=== PATIENT | female | born 1995 | race Caucasian/White ===

== ENCOUNTER 2016-03-29 09:04 | Emergency (ER) | payer OTHER ==
[~2016-03-29] VITALS: Wt 111.5 kg
[2016-03-29 09:43] LABS: ADD UMIC YES; URINE BILIRUBIN (Dip) 1+ (NEGATIVE); URINE BLOOD (Dip) 3+ (NEGATIVE); URINE COLOR YELLOW (YELLOW); URINE GLUCOSE (Dip) NEGATIVE (NEGATIVE); URINE KETONES (Dip) 40 (NEGATIVE); URINE LEUKOCYTE ESTERASE (Dip) 1+ (NEGATIVE); URINE NITRITE (Dip) NEGATIVE (NEGATIVE); URINE TOTAL PROTEIN (Dip) TRACE (NEGATIVE); URINE UROBILINOGEN (Dip) 0.2 E.U./dL (0.1-1.0)
[2016-03-29 09:45] LABS: BASOPHILS % 0.6 % (0.0-2.0); EOSINOPHILS # 0.1 10^3/ul (0.0-0.5); EOSINOPHILS % 0.9 % (0.0-7.0); HEMATOCRIT 40.1 % (37.0-47.0); HEMOGLOBIN 13.5 g/dl (12.0-16.0); LYMPHOCYTES # 1.8 10^3/ul (0.8-2.9); LYMPHOCYTES % 24.3 % (15.0-51.0); MEAN CORPUSCULAR HEMOGLOBIN 29.4 pg (29.0-33.0); MEAN CORPUSCULAR HGB CONC 33.7 g/dl (32.0-37.0); MEAN CORPUSCULAR VOLUME 87.1 fl (82.0-101.0); MEAN PLATELET VOLUME 8.4 fl (7.4-10.4); MONOCYTE # 0.6 10^3/ul (0.3-0.9); MONOCYTES % 8.2 % (0.0-11.0); PLATELET COUNT 215 10^3/UL (140-440); RED CELL DISTRIBUTION WIDTH 12.4 % (11.5-14.5); UNCORRECTED WBC 7.6 10^3/ul (4.8-10.8); WHITE BLOOD COUNT 7.6 10^3/ul (4.8-10.8)
[2016-03-29 09:52] LABS: CONDITION 1
--- NOTE | 2016-03-29 10:23 | RADRPT ---
PROCEDURE: US Pelvis. CLINICAL INDICATION: Vaginal spotting. TECHNIQUE: Multiple sonographic images of the pelvis were obtained utilizing a transabdominal and endovaginal technique. The images were reviewed on a PACS workstation. COMPARISON: None available. FINDINGS: The uterus is visualized and measures 7.7 x 4.1 x 5.1 cm. The endometrial echo complex is mildly pro minent and measures 2.1 mm. There is no evidence of an intrauterine gestational sac. There is free f luid in the cul-de-sac.. The right ovary has a normal echotexture and measures 4.2 x 3.2 x 2.9 cm. T here is a 1.9 x 2.3 x 1.4 cm right ovarian cyst. The left ovary has a normal echotexture and measure s 3.3 x 1.8 x 2.6 cm. No adnexal masses are noted. IMPRESSION: 1. Essentially unremarkable ultrasound of the pelvis. No evidence of an intrauterine gestation. 2. 1.9 x 2.3 x 1.4 cm right ovarian cyst. Note: In the proper clinical setting, an early IUP, missed AB or ectopic could have this appearance . Correlate with serial quantitative beta HCGs and possible follow-up ultrasound. RPTAT: AACC Physician Alec Date Time Electronically viewed and signed by Physician Alec on 03/29/2016 10:22 /
[2016-03-29 10:50] LABS: SQUAMOUS EPITHELIAL CELL,UR FEW
[2016-03-29 10:57] LABS: ICTOTEST NEGATIVE (NEGATIVE)
[2016-03-29] MEDS ORDERED: ONDA4TAB8 PO (11:14)
[2016-03-29] MEDS ORDERED: NITR-58 PO (11:18)
--- NOTE | 2016-03-29 17:36 | ERD ---
DATE OF SERVICE: HISTORY OF PRESENT ILLNESS: The patient is a 20-year-old female coming in complaining of vomiting. The patient states that she had a positive test at home. She is unsure if her vomiting i s associated with her . She is having no lateralizing pain. She is having some mild cookie ess in the abdominal region. She states she does not know when her last menstrual period was. She has been taking Depo-Provera for the last year. Her last shot was November 2015. She currently do es not have an COMPUTER OPERATIONS SUPERVISOR following her . G1, P0, A0. PAST MEDICAL HISTORY: Denies medical problems. ALLERGIES TO MEDICATIONS: DENIES. PAST SURGICAL HISTORY: Denies. SOCIAL HISTORY: Denies. REVIEW OF SYSTEMS: A 12-point review of systems was done. Refer to HPI for positives, all other sy stems negative. PHYSICAL EXAMINATION VITAL SIGNS: Temperature is 97.7, pulse 104, blood pressure is 128/88, respiratory 18, O2 saturatio n 100% on room air. Pain intensity of 4/10. GENERAL: The patient is well-appearing, well-nourished, no acute distress. HEART: Regular rate and rhythm. No murmurs, clicks, rubs, or gallops. No S3 or S4. CHEST: Clear to auscultation bilaterally. There are no rales, wheezes, or rhonchi. HEENT: Atraumatic. Conjunctivae are pink. Pupils equal, round, and reactive to light. There is n o scleral icterus. Tympanic membranes clear bilaterally. Oropharynx clear. No nystagmus or photop hobia. ABDOMEN: Soft, nontender and nondistended. Good bowel sounds. No rebound or guarding. No gross p eritonitis. No gross organomegaly or masses. No Guevara sign or McBurney point tenderness. SKIN: There is no apparent rash or petechiae. The skin is warm and dry. EMERGENCY ROOM COURSE: The patient had blood work done in the ER. CBC was within normal limits. B eta quant was 437.4. The patient's urine showed 1+ leukocytes with 5 to 10 white blood cells, and 3 + hemoglobin. The patient's blood type A positive. Obstetric ultrasound showed: 1. Essentially unremarkable ultrasound of pelvis. No evidence an IUP. 2. A 1.9 x 2.3 x 1.4 cm right ovarian cyst in the proper clinical setting. An early IUP, missed AB, or ectopic could have this appearance. Correlate with serial quantitative beta HCGs and possible followup ultrasound. Given the patient does not have IUP seen on ultrasound with positive hCG and no vaginal bleeding, I did consult Dr. Rodriguez who is the laborist orientation and mobility instructor. I explained the case. Dr. Rodriguez did not come down and see patient. She stated the patient was s table for outpatient management and to return in 2 days for reevaluation of beta quant and re-ultras ound. The patient was given Zofran in the ER. The patient did not have vomiting episodes in the ER . DIAGNOSES: 1. Positive hCG. 2. Urinary tract infection. MEDICAL DECISION MAKING: Ectopic cannot be ruled out; however, the patient's beta hCG lev els are very low, and she is currently not have any lateralized pelvic abdominal pain on exam. I espino ve a low suspicion for ectopic , but explained to patient the importance of returning in 2 days for recheck of beta quant levels and repeat of ultrasound to rule out possible ectopic. This c ase was discussed with laborist who stated to send patient home. I have low suspicion for dehydrati on. The patient tolerated p.o. in the ER and the patient is able to produce urine. I have low susp icion for pyelo. Vital signs are stable. The patient's exam is nonconcerning. The patient is not having vaginal bleeding. She is Rh positive. No indication for RhoGAM injection. The patient is n ontoxic appearing. The patient's hemoglobin is stable. DISCHARGE: The patient is discharged stable. The patient given a prescription for Zofran and Macro bid and told to return in 2 days for a recheck of beta quant and hCG. The patient was told if sympt oms change or worsen, to return sooner than 2 days. All other questions answered at time of dischar ge. Discharge summary given at the time of departure. The patient understood and complied with diana n. Dictated By: OLIVIA JEAN-BAPTISTE for [facility]/NTS Conf#: [id number] DID#: [id number]
== END 2016-03-29 11:40 | disposition home or self-care (01) ==
LOC: FTE 09:04
DX: O23.40 Unspecified infection of urinary tract in pregnancy, unspecified trimester (principal); Z32.01 Encounter for pregnancy test, result positive; Z3A.00 Weeks of gestation of pregnancy not specified
CPT/HCPCS: 36415; 76801; 76817; 81001; 84702; 85025; 86900; 86901; Z7502; 81003

== ENCOUNTER 2016-03-31 07:26 | Emergency (ER) | payer OTHER ==
[~2016-03-31] VITALS: Ht 172.7 cm; Wt 112.0 kg
[~2016-03-31 07:26] MED LIST: NITR-58 PO; ONDA4TAB8 PO
[2016-03-31 07:37] VITALS: Ht 172.7 cm; Wt 112.0 kg
--- NOTE | 2016-03-31 09:15 | RADRPT ---
PROCEDURE: US Pelvis. CLINICAL INDICATION: vaginal bleeding TECHNIQUE: Multiple sonographic images of the pelvis were obtained utilizing a transabdominal and endovaginal technique. The images were reviewed on a PACS workstation. COMPARISON: 03/29/2016 FINDINGS: The uterus is normal in size and demonstrates a normal appearance of the myometrium. The endometria l stripe is prominent in appearance and has the thickness of 21 mm. No intrauterine gestation is noted. The right ovary measures 4.2 x 3.3 x 1.6 cm. There is a 2.2 cm simple cyst in the right ovary. Ther e is normal Doppler flow. The left ovary was not visualized. There is a small amount of free fluid in the cul-de-sac. RPTAT: AA IMPRESSION: No intrauterine gestation visualized. Left ovary not visualized. No significant interval change. Differential diagnosis includes early , missed or ectopic . Follow-up ultrasound and HCG levels is recommended. .Santhosh Fulton MD, MD Date Time Electronically viewed and signed by .Santhosh Fulton MD, on 03/31/2016 09:15 .S/
--- NOTE | 2016-03-31 10:59 | ERD ---
DATE OF SERVICE: 03/31/2016 HISTORY OF PRESENT ILLNESS: The patient is a 20-year-old female coming in for a recheck of an ultra sound and beta quant level. Patient was seen 2 days ago, and was not seen on ultrasound. Patient did have positive beta quant levels. The patient was told to return. She is currently hav ing some mild bleeding. There is some generalized sore pelvic pain, but no lateralized severe tende rness on palpation of the abdomen. Patient has had no vomiting. She is not having clotting. No fe vers. She is unsure of her last menstrual period because she has been on the Depo-Provera shot. He r last Depo shot was 11/2015. G1, P0, A0. PAST MEDICAL HISTORY: Denies any other medical problems. ALLERGIES TO MEDICATIONS: DENIES ALLERGIES TO MEDICATIONS. SURGERIES: Denies. HOSPITALIZATIONS: Denies. SOCIAL HISTORY: Denies. REVIEW OF SYSTEMS: A 12-point review of systems was done. Refer to HPI for positives, all other sy stems negative. PHYSICAL EXAMINATION VITAL SIGNS: Temperature is 98.7, pulse is 103, blood pressure is 137/79, respiratory 18, O2 satura tion 100% on room air. Pain intensity is 0/10. GENERAL: The patient is well-appearing, well-nourished, no acute distress. HEART: Regular rate and rhythm. No murmurs, clicks, rubs or gallops. No S3 or S4. CHEST: Clear to auscultation bilaterally. There are no rales, wheezes or rhonchi. HEENT: Atraumatic. Conjunctivae are pink. Pupils equal, round, and reactive to light. There is no s cleral icterus. Tympanic membranes clear bilaterally. Oropharynx clear. No nystagmus or photophobia . ABDOMEN: Soft, nontender and nondistended. Good bowel sounds. No rebound or guarding. No gross brayden tonitis. No gross organomegaly or masses. No Guevara sign or McBurney point tenderness. SKIN: There is no apparent rash or petechia. The skin is warm and dry. BACK: No midline or flank tenderness. EMERGENCY ROOM COURSE: The patient had a repeat beta quant level in the ER. Patient's beta quant l evels had increased slightly, which increased from 437.4 to 581.3. Patient had a repeat obstetric u ltrasound which showed no intrauterine gestation visualized. Left ovary not visualized. No signifi cant interval change. The differential diagnoses includes early , missed , or ecto pic . Followup ultrasound and hCG levels are recommended. Patient's blood type is A posit rene. DIAGNOSES: 1. Positive hCG. 2. Vaginal bleeding, threatened . MEDICAL DECISION MAKING: I cannot rule out ectopic at this time; however, the patient's beta quant levels are under the 1500 discriminatory zone, so patient may have early IUP within the uterus that is not visualized with the ultrasound. The patient is not having lateralized pain noted on exam. I have low suspicion for ectopic at this time. The patient is recommended to return within another 2 days for continued follow at the ER or with primary doctor for close followup. Patient was told if symptoms change or worsen, to return sooner. I have low suspicion for a ruptured ectopic. Patient 's vital signs are stable. The patient is nontoxic appearing. Patient is at risk for possible misc arriage, given she is having vaginal bleeding. DISCHARGE: The patient is discharged stable. Patient is told to continue taking medications as pre viously prescribed for UTI. Patient is told to return to the ER or with the primary doctor within t he next 2 days for recheck. The patient was told if symptoms progress or worsen to return sooner. All other questions answered at time of discharge. Discharge summary given at the time of departure . Patient understood and complied with plan. Dictated By: OLIVIA BARLOW/LEONIDAS Conf#: [id number] DID#: [id number]
== END 2016-03-31 09:36 | disposition home or self-care (01) ==
LOC: FTE 07:26
DX: O20.0 Threatened abortion (principal); Z3A.00 Weeks of gestation of pregnancy not specified
CPT/HCPCS: 76801; 76817; 84702; Z7502

== ENCOUNTER 2016-04-16 07:47 | Day surgery (SDC) | payer OTHER ==
[~2016-04-16] VITALS: Ht 172.7 cm; Wt 110.5 kg
[2016-04-16] VITALS (16 sets, daily range): BP systolic 114–139; BP diastolic 50–70; PULSE 88–120; RESP 20–29; Ht 172.7 cm; Wt 110.5 kg
--- NOTE | 2016-04-16 08:26 | ERD ---
ER Documentation Chief Complaint Date/Time DATE: 04/16/16 TIME: 08:25 Chief Complaint CAME IN VIA INTAKE DUE TO VAGINAL BLEEDING, <20 WKS GESTATION HPI 21-year-old female who is A0, she states that she is approximately 4 weeks comes to the emergency room with vaginal bleeding for the last 3- 4 days. This patient states that she had an ultrasound done on 29 March and was told that she was very early, she does know that she has a right ovarian cyst from that visit. Over the last 3 days she has had light bleeding that began to get heavier with clots passing, she describes pelvic cramping as well. She has not had any fevers or chills or dizziness. ROS All systems reviewed and are negative except as per history of present illness. Medications Home Meds Active Scripts Nitrofurantoin Monohyd Macrocr* (Macrobid*) 100 Mg Capsr, 100 MG PO BID for 7 Days, CAP Prov:FRANK RODRIGUEZ PA-C 03/29/16 Ondansetron Hcl* (Zofran*) 4 Mg Tablet, 4 MG PO Q6H for NAUSEA AND/OR VOMITING, #30 TAB Prov:FRANK RODRIGUZE PA-C 03/29/16 Allergies Allergies: Coded Allergies: No Known Allergy (Unverified , 03/29/16) PMhx/Soc Hx Alcohol Use: No Hx Substance Use: No Hx Tobacco Use: No Physical Exam Vitals Vital Signs Date Time Temp Pulse Resp B/P Pulse Ox O2 Delivery O2 Flow Rate FiO2 04/16/16 08:05 98.4 94 18 137/80 97 Physical Exam General: Well-developed, well-nourished. The patient appears in no acute distress. HEENT: Head is normocephalic, atraumatic. No scleral icterus. Neck: Supple. Nontender. Lungs: Clear to auscultation. Normal air movement. Heart: Regular rate and rhythm. S1 and S2 are normal. No murmurs, gallops, or rubs. Abdomen: Soft, nontender, nondistended. Bowel sounds are normoactive. Extremities: No clubbing or cyanosis. Normal pulses. Moving extremities x 4. No weakness. Neurologic: Alert and oriented 3. No focal deficits. Skin: Normal turgor. No rash or lesions. Result Diagram: 04/16/16 0900 Results 24 hrs Laboratory Tests Test 04/16/16 09:00 04/16/16 09:47 Basophils # 0.010^3/ul Basophils % 0.2% Beta HCG, Quantitative 2031.0mIU/ml Eosinophils # 0.010^3/ul Eosinophils % 0.3% Hematocrit 38.8% Hemoglobin 13.1g/dl Lymphocytes # 1.410^3/ul Lymphocytes % 13.9% Mean Corpuscular Hemoglobin 29.5pg Mean Corpuscular Hemoglobin Concent 33.6g/dl Mean Corpuscular Volume 87.8fl Mean Platelet Volume 8.7fl Monocytes # 0.410^3/ul Monocytes % 4.3% Neutrophils # 8.010^3/ul Neutrophils % 81.3% Nucleated Red Blood Cells # 0.010^3/ul Nucleated Red Blood Cells % 0.0/100WBC Platelet Count 45446^3/UL Red Blood Count 4.4210^6/ul Red Cell Distribution Width 12.4% Urine Bilirubin NEGATIVE Urine Clarity SLIGHTLY CLOUDY Urine Color LT. YELLOW Urine Glucose NEGATIVE% Urine Hemoglobin 3+ Urine Ketones 15 Urine Leukocyte Esterase 2+ Urine Microscopic RBC >50/HPF Urine Microscopic WBC 5-10/HPF Urine Nitrite NEGATIVE Urine Specific Grimes 1.025 Urine Squamous Epithelial Cells FEW Urine Total Protein TRACE Urine Urobilinogen 0.2 E.U./dL Urine pH 5.5 White Blood Count 9.810^3/ul Activated Partial Thromboplast Time 29.6Sec INR International Normalized Ratio 0.91 Prothrombin Time 12.2Sec Prothrombin Time Ratio 1.0 Current Medications Medications (Trade) Dose Ordered Sig/Kwasi Route PRN Reason Start Time Stop Time Status Last Admin Dose Admin Acetaminophen 650 mg 650 mg ONCE ONCE PO 04/16/16 08:30 04/16/16 08:31 DC 04/16/16 09:04 Sodium Chloride (NS) 1,000 ml @ 1,000 mls/hr Q1H ONCE IV 04/16/16 09:30 04/16/16 10:29 DC PROCEDURE: OBSTETRICAL ULTRASOUND WITH ENDOVAGINAL IMAGES CLINICAL INDICATION: Vaginal Bleed (), pain TECHNIQUE: Multiple sonographic images of the pelvis were obtained utilizing a transabdominal and endovaginal technique. The images were reviewed on a PACS workstation. COMPARISON: Obstetrical ultrasound from 03/31/2016 FINDINGS: The uterus measures 8.1 x 4.2 x 5.0 cm. The endometrial echo complex measures 15 mm in thickness. There is no evidence of an intrauterine . The right ovary measures 3.3 x 2.5 x 2.6 cm. The left ovary measures 2.8 x 1.7 x 2.2 cm. There is normal vascular flow in both ovaries. There is a heterogeneous solid lesion with foci of internal vascular flow in the right adnexa which measures 3.6 x 2.9 x 2.7 cm in maximum axial dimensions. A prominent eccentric cystic space is noted within it. There is moderate pelvic free fluid with debris which is suspicious for hemorrhage. IMPRESSION: There is no evidence of an intrauterine although there is a heterogeneous mass with vascular flow in the right adnexa measuring up to 3.6 cm as well as moderate free fluid with debris in the pelvis which is likely hemorrhage. Findings are suspicious for rupture of an ectopic in the right adnexa. These findings were discussed with ESTIVEN Rodriguez over the phone on 04/16/2016 at 09:42 hours. RPTAT: EE Physician James Date Time Electronically viewed and signed by Physician James on 04/16/2016 09:43 Procedures/MDM ED course: Initially when patient was seen, she was given Tylenol for pain. A line was established, she was kept on a monitor, fluid bolus of normal saline 1 L was given. I spoke with laborist, Dr Eubanks who saw the patient will take her to OR. MDM: 21 year old female comes in wit espino ruptured ectopic on the right, will admit. She was monitored, stable during the ER COURSE. Normal vitals , patient will be going to OR and admitted. The case was reviewed and discussed with who agrees with the plan of care including labs, treatment, and advanced imaging as appropriate. Departure Diagnosis: Primary Impression: Ruptured ectopic Condition: VITOR Bhatia PA-C Apr 16, 2016 08:26
[2016-04-16] MEDS ORDERED: ACETAMINOPHEN 325 MG TAB PO ONE (08:30)
[2016-04-16 09:29] LABS: BASOPHILS % 0.2 % (0.0-2.0); EOSINOPHILS % 0.3 % (0.0-7.0); HEMATOCRIT 38.8 % (37.0-47.0); HEMOGLOBIN 13.1 g/dl (12.0-16.0); LYMPHOCYTES # 1.4 10^3/ul (0.8-2.9); LYMPHOCYTES % 13.9 % (15.0-51.0); MEAN CORPUSCULAR HEMOGLOBIN 29.5 pg (29.0-33.0); MEAN CORPUSCULAR HGB CONC 33.6 g/dl (32.0-37.0); MEAN CORPUSCULAR VOLUME 87.8 fl (82.0-101.0); MEAN PLATELET VOLUME 8.7 fl (7.4-10.4); MONOCYTE # 0.4 10^3/ul (0.3-0.9); MONOCYTES % 4.3 % (0.0-11.0); NEUTROPHILS % 81.3 % (39.0-77.0); PLATELET COUNT 275 10^3/UL (140-440); RED BLOOD COUNT 4.42 10^6/ul (4.20-5.40); RED CELL DISTRIBUTION WIDTH 12.4 % (11.5-14.5); UNCORRECTED WBC 9.8 10^3/ul (4.8-10.8); WHITE BLOOD COUNT 9.8 10^3/ul (4.8-10.8)
[2016-04-16] MEDS ORDERED: SOD CHLORIDE 0.9% 1,000 ML IV ONE ×2 (09:30→13:00)
[2016-04-16 09:31] LABS: ADD UMIC YES; URINE BILIRUBIN (Dip) NEGATIVE (NEGATIVE); URINE BLOOD (Dip) 3+ (NEGATIVE); URINE COLOR LT. YELLOW (YELLOW); URINE GLUCOSE (Dip) NEGATIVE (NEGATIVE); URINE KETONES (Dip) 15 (NEGATIVE); URINE LEUKOCYTE ESTERASE (Dip) 2+ (NEGATIVE); URINE NITRITE (Dip) NEGATIVE (NEGATIVE); URINE TOTAL PROTEIN (Dip) TRACE (NEGATIVE); URINE UROBILINOGEN (Dip) 0.2 E.U./dL (0.1-1.0)
[2016-04-16 09:32] LABS: CONDITION 1
[2016-04-16 09:43] LABS: SQUAMOUS EPITHELIAL CELL,UR FEW; URINE RBCS >50 /HPF (0)
--- NOTE | 2016-04-16 09:43 | RADRPT ---
PROCEDURE: OBSTETRICAL ULTRASOUND WITH ENDOVAGINAL IMAGES CLINICAL INDICATION: Vaginal Bleed (), pain TECHNIQUE: Multiple sonographic images of the pelvis were obtained utilizing a transabdominal and endovaginal technique. The images were reviewed on a PACS workstation. COMPARISON: Obstetrical ultrasound from 03/31/2016 FINDINGS: The uterus measures 8.1 x 4.2 x 5.0 cm. The endometrial echo complex measures 15 mm in thickness. There is no evidence of an intrauterine . The right ovary measures 3.3 x 2.5 x 2.6 cm. The left ovary measures 2.8 x 1.7 x 2.2 cm. There is no rmal vascular flow in both ovaries. There is a heterogeneous solid lesion with foci of internal vascular flow in the right adnexa which measures 3.6 x 2.9 x 2.7 cm in maximum axial dimensions. A prominent eccentric cystic space is note d within it. There is moderate pelvic free fluid with debris which is suspicious for hemorrhage. IMPRESSION: There is no evidence of an intrauterine although there is a heterogeneous mass with vascul ar flow in the right adnexa measuring up to 3.6 cm as well as moderate free fluid with debris in the pelvis which is likely hemorrhage. Findings are suspicious for rupture of an ectopic in t he right adnexa. These findings were discussed with ESTIVEN Lopes over the phone on 04/16/2016 at 09:42 hours. RPTAT: EE Physician James Date Time Electronically viewed and signed by Physician James on 04/16/2016 09:43 /
[2016-04-16 10:22] LABS: INR 0.91; PROTIME 12.2 Sec (12.2-14.2)
[2016-04-16 10:23] LABS: PARTIAL THROMBOPLASTIN TIME 29.6 Sec (25.0-35.0)
--- NOTE | 2016-04-16 11:17 | HP ---
Date/Time of Note Date/Time of Note DATE: 04/16/16 TIME: 11:05 Assessment/Plan VTE Prophylaxis VTE Prophylaxis Intervention: SCD's Lines/Catheters IV Catheter Type (from Nrs): Peripheral IV Assessment/Plan Chief Complaint/Hosp Course Concern for R ruptured ectopic based on pt sxs and imaging Problems: Assessment/Plan Lab and ultrasound findings reviewed with patient. Discussed in detail the recommended management of a suggested ruptured ectopic with surgery. Pt is amenable to surgical management. Discussed R/B/A of planned procedure and pt consented for diagnostic laparoscopy, removal of ectopic , possible unilateral salpingectomy, possible exploratory laparotomy and other indicated procedures. Risks discussed include but are not limited to pain, infection, damage to nearby organs or structures possibly requiring removal or repair, possible need for additional surgeries as a result of today's surgery and bleeding possibly requiring a blood transfusion. Transfusion risks- infectious and transfusion reaction risks explained in detail. Questions answered to the patient's satisfaction in a language with which she is comfortable prior to obtaining written consent for the procedure and for transfusion of blood products. Pt is FULL CODE. Cross x2u PRBCs. Called and informed OR awning hanger supervisor of pt need for OR. Will await room. HPI/ROS Admit Date/Time Admit Date/Time Hx of Present Illness Pt is a 21yo G1 with unknown LMP who presented to the ED with progressively worsening LAP and heavy vaginal bleeding x2 days in the setting of a known . [facility] [place] [facility] with no evidence of IUP and concern for R ruptured ectopic on U/S in ED. Pt states she was previously seen in the ED mid-March for spotting and an IUP was not visualized, however a urine test was positive. Pt was instructed to follow-up with her CONSTRUCTION PROJECT ENGINEER as an outpatient but she had not yet been able to make an appointment. Pt denies N/V, lightheadedness or dizziness. Denies urinary or bowel c/o. CONSTRUCTION PROJECT ENGINEER Hx: G1. Received DMPA last in Summer 2015, was due in the fall but did not return to the doctor to receive injection. Denies hx of STIs. Does not use condoms. Soc Hx: Denies T/E/D. Works as a teacher. Lives at home with parents who are unaware she is sexually active and . Engaged to male partner of 2yrs. PROCEDURE: OBSTETRICAL ULTRASOUND WITH ENDOVAGINAL IMAGES CLINICAL INDICATION: Vaginal Bleed (), pain TECHNIQUE: Multiple sonographic images of the pelvis were obtained utilizing a transabdominal and endovaginal technique. The images were reviewed on a PACS workstation. COMPARISON: Obstetrical ultrasound from 03/31/2016 FINDINGS: The uterus measures 8.1 x 4.2 x 5.0 cm. The endometrial echo complex measures 15 mm in thickness. There is no evidence of an intrauterine . The right ovary measures 3.3 x 2.5 x 2.6 cm. The left ovary measures 2.8 x 1.7 x 2.2 cm. There is normal vascular flow in both ovaries. There is a heterogeneous solid lesion with foci of internal vascular flow in the right adnexa which measures 3.6 x 2.9 x 2.7 cm in maximum axial dimensions. A prominent eccentric cystic space is noted within it. There is moderate pelvic free fluid with debris which is suspicious for hemorrhage. IMPRESSION: There is no evidence of an intrauterine although there is a heterogeneous mass with vascular flow in the right adnexa measuring up to 3.6 cm as well as moderate free fluid with debris in the pelvis which is likely hemorrhage. Findings are suspicious for rupture of an ectopic in the right adnexa. 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 Unsure what the trigger was. Not currently on meds.) Past Surgical History Past Surgical Hx: no surgical history Family History Significant Family History: no pertinent family hx Social History Alcohol Use: none Smoking Status: Never smoker Drug Use: none Exam/Review of Systems Vital Signs Vitals Vital Signs Date Time Temp Pulse Resp B/P Pulse Ox O2 Delivery O2 Flow Rate FiO2 04/16/16 08:05 98.4 94 18 137/80 97 Exam Constitutional: alert, oriented, well developed, No distress Psych: no complaints Head: atraumatic, normocephalic Eyes: nl conjunctiva ENMT: mucosa pink and moist Neck: supple Respiratory: clear to auscultation, normal air movement Cardiovascular: regular rate and rhythm Gastrointestinal: bowel sounds, non-tender, soft, No distended, No surgical scars Genitourinary - Female: other (SVE deferred) Musculoskeletal: nl extremities to inspection Extremities: No edema Neurological: BIBLIOGRAPHIC SERVICES SPECIALIST II-XII intact, nl speech Skin: nl turgor Labs Result Diagram: 04/16/16 0900 NANETTE WILSON MD Apr 16, 2016 11:15
--- NOTE | 2016-04-16 12:08 | EN ---
Date/Time of Note Date/Time of Note DATE: 04/16/16 TIME: 12:07 ER Progress Note I spoke with our physician photographer's assistant in regards to this patient who presents with abdominal discomfort. Patient was found to have a ruptured ectopic . Patient will be admitted to LOGISTICS ADMINISTRATOR and will be taken to the OR today under the care of JERMAN Gomes DO Apr 16, 2016 12:08
[2016-04-16] MEDS ORDERED: ONDANSETRON 4 MG INJ IV STA ×2 (12:57→16:43)
[2016-04-16] MEDS ORDERED: morphine 4 MG/ML VIAL IV STA (12:57)
[2016-04-16] MEDS ORDERED: PROPOFOL 20 ML ONE ×2 (14:01→15:45)
[2016-04-16] MEDS ORDERED: ROCURONIUM 50 MG INJ ONE ×2 (14:01→15:45)
[2016-04-16] MEDS ORDERED: FENTAnyl 50 MCG/ML VIAL ONE (14:01)
[2016-04-16] MEDS ORDERED: MIDAZOLAM 1 MG/ML 2 ML INJ ONE (14:01)
[2016-04-16] MEDS ORDERED: PHENYLephrine (100 MCG/ML) 5ML SYG ONE (14:28)
[2016-04-16] MEDS ORDERED: METOCLOPRAMIDE 10 MG INJ IV PRN (15:30)
[2016-04-16] MEDS ORDERED: ONDANSETRON 4 MG INJ IV PRN (15:30)
[2016-04-16] MEDS ORDERED: morphine (1 MG/ML) 10ML SYRINGE IV PRN ×3 (15:30)
[2016-04-16] MEDS ORDERED: MEPERIDINE 25 MG INJ IV PRN (15:30)
[2016-04-16] MEDS ORDERED: HYDROmorphONE (0.2 MG/ML) 10ML SYG IV PRN ×3 (15:30)
[2016-04-16] MEDS ORDERED: DIPHENHYDRAMINE 50 MG INJ IV PRN (15:30)
[2016-04-16] MEDS ORDERED: METOCLOPRAMIDE 10 MG INJ ONE (15:46)
[2016-04-16] MEDS ORDERED: ONDANSETRON 4 MG INJ ONE (15:46)
[2016-04-16] MEDS ORDERED: DEXAMETHASONE 4 MG/ML 1 ML INJ ONE (15:46)
[2016-04-16] MEDS ORDERED: KETOROLAC 30 MG INJ ONE (15:46)
[2016-04-16] MEDS ORDERED: NEOSTIGMINE 3 MG/3 ML SYRINGE ONE (16:38)
[2016-04-16] MEDS ORDERED: GLYCOPYRROLATE 0.4 MG INJ ONE (16:38)
[2016-04-16] MEDS ORDERED: HYDROmorphONE 2 MG/ML SYG IM STA (16:43)
--- NOTE | 2016-04-16 17:30 | OPR ---
Date/Time of Note Date/Time of Note DATE: 04/16/16 TIME: 17:20 Operative Report Procedure Date: Apr 16, 2016 Preoperative Diagnosis Ruptured Right Ectopic Postoperative Diagnosis Same Operation Performed Diagnostic Laparoscopy Right Salpingectomy Evacuation of Hemoperitoneum Surgeon: NANETTE WILSON MD Anesthesia: general Anesthesiologist: FRANDY MEREDITH MD Estimated Blood Loss: 10 - 50 ml's Specimens R ectopic and R fallopian tube to Pathology Tubes/Drains None Complications: None Pt Condition Post Procedure: stable Disposition: PACU Indications 21yo G1 with elevated Bhcg, no evidence of intrauterine and pelvic imaging suggestive of R ectopic with rupture. Operative Findings Normal appearing uterus, bilateral ovaries, L fallopian tube and upper abdomen. R fallopian tube with 3cm tubal with evidence of rupture. Hemoperitoneum Procedure Description The patient was taken to the operating room with an IV in place. She was placed in the dorsal supine position where general anesthesia was induced. The patient was then placed in lithotomy position in Pradip stirrups. A vines catheter was inserted using sterile technique and the abdomen was prepped and draped in a sterile fashion. Attention then turned to the abdomen. Two Allis clamps were used to grasp the inferior aspects of the umbilicus. A scalpel was used to make a transverse incision between the instruments. A Lucille clamp was used to dissect the subcutaneous fat to the level of the fascia. The fascia was then grasped with two Mercedes clamps and sharply entered using Allan scissors. The incision was extended laterally in a sharp fashion. Stay sutures of 0-Vicryl were placed in the fascia. The peritoneum was grasped with a hemostat and entered sharply using Metzenbaum scissors. The underside of the abdominal wall was palpated and no adhesions were noted. A Maycol trocar was then inserted into the peritoneum. The gas was turned on and connected and appropriate pneumoperitoneum was achieved. A survey of the pelvis and upper abdomen revealed the findings below. The patient was placed in trendelenberg position. Two 5mm ports were then placed under direct visualization with care to avoid vascular structures. A suction staff toxicologist was used to evacuate hemoperitoneum. Using the Gyrus, the right fallopian tube was resected and removed from the abdomen using an Endocatch bag. Suction and irrigation was then used to assess for hemostasis. Once appropriate hemostasis had been achieved, Surgicel was placed over the surgical bed. The ubmilical and left ports were removed under direct visualization. Pneumoperitoneum was released and the remaining port on the left was removed. The fascia at the umbilical site was closed using 0- Vicryl. The skin at all three sites were closed using 3-0 Monocryl in a subcuticular fashion. Steristrips and bandaids were placed over the three incisions. The vines catheter was removed and the patient was awakened from anesthesia without difficulty and taken to the recovery room in stable condition. NANETTE WILSON MD Apr 16, 2016 17:30
--- NOTE | 2016-04-16 17:31 | PD.PPDC ---
PROCESS IMPROVEMENT SPECIALIST Discharge Instruction Diagnosis Final Diagnosis: Ruptured Right Ectopic Condition Patient Condition: Good Diet Diet: Resume Regular Diet Activity/Restrictions Activity: Normal Activity May Shower Restrictions: No Exercising No Lifting No Driving (while taking narcotic medications) No Sexual Activity Nothing in the Vagina No [place] No Tampons, douche Wound/Drain Care Instructions Wound/Drain Care Instructions: Remove Steri Strips in 1 week Follow-up Follow-up with Physician: 1, Week/Weeks Return to clinic for FEEDER DRIVER Instructions: Fever greater than 101 Chills Worsening abdominal pain Excessive Vaginal Bleeding More than 2 pads per hour Unable to tolerate diet Surgical Instructions: Incisional Drainage Incisional Redness NANETTE WILSON MD Apr 16, 2016 17:31
[2016-04-16] MEDS ORDERED: HYDROCODONE/APAP (5/325) TAB ONE (17:42)
[2016-04-16] MEDS ORDERED: HYDROCODONE/APAP (5/325) TAB PO ONE (18:00)
== END 2016-04-16 20:00 | disposition home or self-care (01) ==
LOC: FTE 07:47 → SDS 13:40
PROVIDERS: ATTEND Obstetrics & Gynecology
DX: O00.90 Unspecified ectopic pregnancy without intrauterine pregnancy (principal)
CPT/HCPCS: 59151; 76801; 76817; 81001; 84702; 85025; 85610; 85730; 86850; 86900; 86901; 88305; J1100; J1170; J1885; J2250; J2270; J2370; J2405; J2710; J2765; J3010; J7030; Z7512; Z7610; 81003; 86920